=== PATIENT | female | born 1990 | race Caucasian/White ===

== ENCOUNTER → 2016-12-13 | Outpatient (REF) | payer OTHER | LOC: M SFHCWAGY 13:31 | PROVIDERS: ATTEND Nurse Practitioner Family | DX: O92.6 Galactorrhea (principal) ==

== ENCOUNTER → 2016-12-13 | Outpatient (CLI) | payer OTHER ==
[2016-12-13 12:51] LABS: MEAN CORPUSCULAR HEMOGLOBIN 31.1 pg (27.0-33.0); MEAN CORPUSCULAR HGB CONC 34.1 g/dl (32.0-36.5); MEAN CORPUSCULAR VOLUME 91.4 fl (80.0-96.0); RED CELL DISTRIBUTION WIDTH 12.2 % (11.5-14.5); WHITE BLOOD COUNT 5.2 K/mm3 (4.0-10.0)
[2016-12-13 13:06] LABS: CONTROL LINE HCG INT CTR LINE PRESENT
[2016-12-13 13:19] LABS: PROLACTIN 7.9 NG/ML
[2016-12-13 14:17] LABS: FREE T4 0.94 NG/DL (0.76-1.46)
== END ==
LOC: M LAB 12:20
PROVIDERS: ATTEND Nurse Practitioner Family
DX: R14.0 Abdominal distension (gaseous) (principal)

== ENCOUNTER → 2017-05-26 | Outpatient (CLI) | payer OTHER, SELFPAY ==
[2017-05-26 14:01] LABS: BASO % 0.5 % (0.0-1.0); EOS # 0.3 K/mm3 (0.0-0.50); EOS % 4.3 % (0.0-3.0); LYMPH # 2.2 K/mm3 (1.5-6.5); LYMPH % 31.1 % (24.0-44.0); MEAN CORPUSCULAR HEMOGLOBIN 30.8 pg (27.0-33.0); MEAN CORPUSCULAR HGB CONC 33.5 g/dl (32.0-36.5); MEAN CORPUSCULAR VOLUME 92.1 fl (80.0-96.0); MONO # 0.4 K/mm3 (0.0-0.8); NEUTROPHILS % 57.9 % (36.0-66.0); RED CELL DISTRIBUTION WIDTH 12.7 % (11.5-14.5); WHITE BLOOD COUNT 6.9 K/mm3 (4.0-10.0)
[2017-05-26 14:25] LABS: CONTROL LINE HCG INT CTR LINE PRESENT
[2017-05-26 14:39] LABS: ALBUMIN 3.5 GM/DL (3.2-5.2); ALKALINE PHOSPHATASE 81 U/L (45-117); ALT/SGPT 22 U/L (12-78); AST/SGOT 15 U/L (15-37); BILIRUBIN,DIRECT 0.2 MG/DL (0.0-0.2); BILIRUBIN,TOTAL 0.5 MG/DL (0.2-1.0); CHOLESTEROL LEVEL 180 MG/DL (< 200); TOTAL PROTEIN 6.2 GM/DL (6.4-8.2); TRIGLYCERIDES LEVEL 186 MG/DL (<150)
== END ==
LOC: M LAB 13:37
PROVIDERS: ATTEND Physician Assistant
DX: Z51.81 Encounter for therapeutic drug level monitoring (principal); Z79.899 Other long term (current) drug therapy; L70.0 Acne vulgaris

== ENCOUNTER → 2017-06-22 | Outpatient (CLI) | payer OTHER, SELFPAY ==
[2017-06-22 11:00] LABS: BASO % 0.5 % (0.0-1.0); EOS # 0.4 K/mm3 (0.0-0.50); EOS % 7.3 % (0.0-3.0); LYMPH # 1.9 K/mm3 (1.5-6.5); LYMPH % 34.4 % (24.0-44.0); MEAN CORPUSCULAR HEMOGLOBIN 31.8 pg (27.0-33.0); MEAN CORPUSCULAR VOLUME 90.9 fl (80.0-96.0); MONO # 0.3 K/mm3 (0.0-0.8); MONO % 5.7 % (0.0-5.0); NEUTROPHILS # 2.8 K/mm3 (1.8-7.7); NEUTROPHILS % 50.1 % (36.0-66.0); RED CELL DISTRIBUTION WIDTH 11.8 % (11.5-14.5); WHITE BLOOD COUNT 5.6 K/mm3 (4.0-10.0)
[2017-06-22 11:14] LABS: CONTROL LINE HCG INT CTR LINE PRESENT
[2017-06-22 11:23] LABS: ALBUMIN 3.7 GM/DL (3.2-5.2); ALBUMIN/GLOBULIN RATIO 1.28 (1.00-1.93); ALKALINE PHOSPHATASE 84 U/L (45-117); ALT/SGPT 32 U/L (12-78); AST/SGOT 20 U/L (15-37); BILIRUBIN,DIRECT 0.1 MG/DL (0.0-0.2); BILIRUBIN,TOTAL 0.4 MG/DL (0.2-1.0); CHOLESTEROL LEVEL 224 MG/DL (< 200); TOTAL PROTEIN 6.6 GM/DL (6.4-8.2); TRIGLYCERIDES LEVEL 278 MG/DL (<150)
== END ==
LOC: M LAB 10:31
PROVIDERS: ATTEND Physician Assistant
DX: Z51.81 Encounter for therapeutic drug level monitoring (principal); Z79.899 Other long term (current) drug therapy; L70.0 Acne vulgaris

== ENCOUNTER → 2017-07-23 | Outpatient (CLI) | payer OTHER ==
[2017-07-23 17:29] LABS: CONTROL LINE HCG INT CTR LINE PRESENT
[2017-07-23 17:38] LABS: BASO % 0.5 % (0.0-1.0); EOS # 0.4 10^3/uL (0.0-0.50); EOS % 5.5 % (0.0-3.0); IMMATURE GRANULOCYTE % 0.4 % (0-0); LYMPH # 2.7 10^3/uL (1.5-6.5); LYMPH % 33.3 % (24.0-44.0); MEAN CORPUSCULAR HEMOGLOBIN 30.8 pg (27.0-33.0); MEAN CORPUSCULAR HGB CONC 34.6 g/dl (32.0-36.5); MEAN CORPUSCULAR VOLUME 88.9 fl (80.0-96.0); MONO # 0.6 10^3/uL (0.0-0.8); MONO % 6.8 % (0.0-5.0); NEUTROPHILS # 4.3 10^3/uL (1.8-7.7); NEUTROPHILS % 53.5 % (36.0-66.0); PLATELET COUNT, AUTOMATED 293 10^3/uL (150-450); RED CELL DISTRIBUTION WIDTH 11.7 % (11.5-14.5)
[2017-07-23 17:48] LABS: ALBUMIN 3.8 GM/DL (3.2-5.2); ALBUMIN/GLOBULIN RATIO 1.31 (1.00-1.93); ALKALINE PHOSPHATASE 83 U/L (45-117); ALT/SGPT 21 U/L (12-78); AST/SGOT 17 U/L (15-37); BILIRUBIN,DIRECT 0.1 MG/DL (0.0-0.2); BILIRUBIN,TOTAL 0.4 MG/DL (0.2-1.0); CHOLESTEROL LEVEL 213 MG/DL (< 200); TOTAL PROTEIN 6.7 GM/DL (6.4-8.2); TRIGLYCERIDES LEVEL 162 MG/DL (<150)
== END ==
LOC: M LAB 16:47
PROVIDERS: ATTEND Physician Assistant
DX: Z79.899 Other long term (current) drug therapy (principal)

== ENCOUNTER 2017-09-01 09:28 | Emergency (ER) | payer OTHER ==
[~2017-09-01] VITALS: Ht 165.1 cm; Wt 76.0 kg
[2017-09-01 09:40] VITALS: BP 112/72
[2017-09-01] MEDS ORDERED: [UNRECOGNIZED DRUG - CODE] PO (09:43)
[2017-09-01] MEDS ORDERED: MUCI1TAB16 PO (10:35)
== END 2017-09-01 10:48 | disposition home or self-care (01) ==
LOC: M ED 09:28
DX: J01.90 Acute sinusitis, unspecified (principal); J30.9 Allergic rhinitis, unspecified; Z87.891 Personal history of nicotine dependence

== ENCOUNTER 2017-11-01 13:29 | Emergency (ER) | payer OTHER ==
[2017-11-01] MEDS: IBUPROFEN 800 MG TAB PO (14:20)
== END 2017-11-01 14:45 | disposition home or self-care (01) ==
LOC: M ED 13:29
DX: S16.1XXA Strain of muscle, fascia and tendon at neck level, initial encounter (principal); V43.62XA Car passenger injured in collision with other type car in traffic accident, initial encounter; Y92.410 Unspecified street and highway as the place of occurrence of the external cause; J30.9 Allergic rhinitis, unspecified; Z88.0 Allergy status to penicillin; Z79.899 Other long term (current) drug therapy
CPT/HCPCS: 70450

== ENCOUNTER → 2017-11-23 | Outpatient (CLI) | payer OTHER ==
[2017-11-23 13:01] LABS: BASO % 0.3 % (0.0-1.0); EOS # 0.5 10^3/uL (0.0-0.50); EOS % 8.1 % (0.0-3.0); HEMATOCRIT 38.8 % (36.0-47.0); HEMOGLOBIN 13.1 g/dl (12.0-16.0); IMMATURE GRANULOCYTE % 0.3 % (0-3.0); LYMPH # 1.8 10^3/uL (1.5-6.5); LYMPH % 30.1 % (24.0-44.0); MEAN CORPUSCULAR HEMOGLOBIN 29.6 pg (27.0-33.0); MEAN CORPUSCULAR HGB CONC 33.8 g/dl (32.0-36.5); MEAN CORPUSCULAR VOLUME 87.8 fl (80.0-96.0); MONO # 0.4 10^3/uL (0.0-0.8); MONO % 6.1 % (0.0-5.0); NEUTROPHILS # 3.3 10^3/uL (1.8-7.7); NEUTROPHILS % 55.1 % (36.0-66.0); PLATELET COUNT, AUTOMATED 260 10^3/uL (150-450); RED BLOOD COUNT 4.42 10^6/uL (4.00-5.40); RED CELL DISTRIBUTION WIDTH 11.9 % (11.5-14.5)
[2017-11-23 13:19] LABS: CONTROL LINE HCG INT CTR LINE PRESENT; HCG, SERUM QUALITATIVE NEGATIVE (NEGATIVE)
[2017-11-23 13:27] LABS: ALBUMIN/GLOBULIN RATIO 1.43 (1.00-1.93); ALKALINE PHOSPHATASE 86 U/L (45-117); ALT/SGPT 13 U/L (12-78); AST/SGOT 13 U/L (7-37); BILIRUBIN,DIRECT 0.2 MG/DL (0.0-0.2); BILIRUBIN,TOTAL 0.8 MG/DL (0.2-1.0); CHOLESTEROL LEVEL 197 MG/DL (< 200); TOTAL PROTEIN 6.8 GM/DL (6.4-8.2); TRIGLYCERIDES LEVEL 103 MG/DL (<150)
== END ==
LOC: M LAB 12:00
DX: L70.0 Acne vulgaris (principal)
CPT/HCPCS: 82465

== ENCOUNTER → 2017-12-07 | Outpatient (REF) | payer OTHER ==
[2017-12-07 14:17] LABS: CHLAMYDIA DNA AMPLIFICATION NEGATIVE (NEGATIVE); GC DNA AMPLIFICATION NEGATIVE (NEGATIVE)
== END ==
LOC: M SFHCWAGY 11:38
DX: Z11.3 Encounter for screening for infections with a predominantly sexual mode of transmission (principal)

== ENCOUNTER → 2017-12-07 | Outpatient (REF) | payer OTHER | LOC: M SFHCWAGY 08:31 | DX: Z12.4 Encounter for screening for malignant neoplasm of cervix (principal); Z11.3 Encounter for screening for infections with a predominantly sexual mode of transmission ==

== ENCOUNTER 2017-12-17 08:06 | Emergency (ER) | payer OTHER ==
[2017-12-17] MEDS: ALBUTEROL SULFATE 2.5 MG/0.5 ML INH NEB SOLN INH (08:46)
== END 2017-12-17 09:32 | disposition home or self-care (01) ==
LOC: M ED 08:06
DX: B34.9 Viral infection, unspecified (principal); J98.01 Acute bronchospasm; J45.909 Unspecified asthma, uncomplicated; Z88.0 Allergy status to penicillin; Z88.8 Allergy status to other drugs, medicaments and biological substances
CPT/HCPCS: 94640

== ENCOUNTER 2018-01-13 11:38 | Emergency (ER) | payer OTHER ==
[2018-01-13] MEDS: ALBUTEROL SULFATE 2.5 MG/0.5 ML INH NEB SOLN NEB (13:47)
[2018-01-13 15:12] LABS: INFLUENZA A AMPLIFICATION NEGATIVE (NEGATIVE); INFLUENZA B AMPLIFICATION NEGATIVE (NEGATIVE)
[2018-01-13] MEDS: predniSONE 20 MG TAB PO (15:42)
== END 2018-01-13 15:44 | disposition home or self-care (01) ==
LOC: M ED 11:38
DX: J06.9 Acute upper respiratory infection, unspecified (principal); J45.901 Unspecified asthma with (acute) exacerbation; Z88.0 Allergy status to penicillin; Z88.6 Allergy status to analgesic agent
CPT/HCPCS: 71046

== ENCOUNTER 2018-01-20 07:53 | Emergency (ER) | payer OTHER | END 2018-01-20 08:48 | disposition home or self-care (01) | LOC: M ED 07:53 | DX: K02.9 Dental caries, unspecified (principal); K04.7 Periapical abscess without sinus; Z87.891 Personal history of nicotine dependence; Z91.048 Other nonmedicinal substance allergy status; Z88.8 Allergy status to other drugs, medicaments and biological substances; Z88.0 Allergy status to penicillin | CPT/HCPCS: 99282 ==

== ENCOUNTER → 2018-04-08 | Outpatient (CLI) | payer OTHER | LOC: M WHC 12:49 | DX: N92.1 Excessive and frequent menstruation with irregular cycle (principal); R93.8 Abnormal findings on diagnostic imaging of other specified body structures | CPT/HCPCS: 76830 ==

== ENCOUNTER → 2018-04-24 | Outpatient (REF) | payer OTHER ==
[2018-04-24 18:41] LABS: HEMATOCRIT 37.9 % (36.0-47.0); HEMOGLOBIN 12.8 g/dl (12.0-15.5); MEAN CORPUSCULAR HEMOGLOBIN 30.4 pg (27.0-33.0); MEAN CORPUSCULAR HGB CONC 33.8 g/dl (32.0-36.5); PLATELET COUNT, AUTOMATED 271 10^3/uL (150-450); RED BLOOD COUNT 4.21 10^6/uL (4.00-5.40); RED CELL DISTRIBUTION WIDTH 11.9 % (11.5-14.5); WHITE BLOOD COUNT 6.1 10^3/uL (4.0-10.0)
[2018-04-24 19:05] LABS: THYROID STIMULATING HORMONE 0.448 uIU/ML (0.358-3.740)
== END ==
LOC: M SFHCWAGY 17:27
DX: N92.1 Excessive and frequent menstruation with irregular cycle (principal); R53.83 Other fatigue

== ENCOUNTER → 2018-08-19 | Outpatient (REF) | payer OTHER ==
[2018-08-19 18:04] LABS: HCG, SERUM QUANTITATIVE < 1.0 MIU/ML
== END ==
LOC: M LAB REF 16:46
DX: R45.4 Irritability and anger (principal)

== ENCOUNTER → 2018-10-24 | Outpatient (CLI) | payer OTHER ==
[~2018-10-24] MED LIST: ACET32TAB GT; BENZ200C70 PO; CLAR30CA PO; CLEO300C2 PO; MUCI1TAB16 PO; MUCI600T37 PO; PRED20TA PO; TYLE325T5 PO; VENTAER; VENTAER INH; [UNRECOGNIZED DRUG - CODE] PO
[2018-10-24 08:58] LABS: BASO # 0.1 10^3/uL (0.0-0.2); BASO % 0.9 % (0.0-1.0); EOS # 0.3 10^3/uL (0.0-0.50); EOS % 5.5 % (0.0-3.0); HEMATOCRIT 39.3 % (36.0-47.0); HEMOGLOBIN 13.5 g/dl (12.0-15.5); LYMPH # 1.8 10^3/uL (1.5-4.5); LYMPH % 31.3 % (24.0-44.0); MEAN CORPUSCULAR HEMOGLOBIN 30.9 pg (27.0-33.0); MEAN CORPUSCULAR HGB CONC 34.4 g/dl (32.0-36.5); MEAN CORPUSCULAR VOLUME 89.9 fl (80.0-96.0); MONO # 0.3 10^3/uL (0.0-0.8); MONO % 5.7 % (0.0-5.0); NEUTROPHILS # 3.2 10^3/uL (1.8-7.7); NEUTROPHILS % 56.1 % (36.0-66.0); PLATELET COUNT, AUTOMATED 349 10^3/uL (150-450); RED BLOOD COUNT 4.37 10^6/uL (4.00-5.40); WHITE BLOOD COUNT 5.6 10^3/uL (4.0-10.0)
[2018-10-24 09:19] LABS: ALBUMIN 3.8 GM/DL (3.2-5.2); ALT/SGPT 12 U/L (12-78); BILIRUBIN,DIRECT 0.2 MG/DL (0.0-0.2); BILIRUBIN,TOTAL 0.6 MG/DL (0.2-1.0); TOTAL PROTEIN 6.8 GM/DL (6.4-8.2)
[2018-10-24 13:20] LABS: H PYLORI QUALITATIVE IgG NEGATIVE (NEGATIVE)
[2018-10-26 08:06] LABS: IGASUB3 61.7 mg/dL (13.4-97.9); IgA SERUM (part of Subclasses) 142 mg/dL (87-352); TISSUE TRANSGLUTAMINASE IgA <2 U/mL (0-3)
== END ==
LOC: M LAB 08:23
PROVIDERS: ATTEND Internal Medicine Gastroenterology
DX: R11.0 Nausea (principal)

== ENCOUNTER 2018-12-04 09:50 | Emergency (ER) | payer OTHER ==
[~2018-12-04] VITALS: Ht 165.1 cm; Wt 72.7 kg
[2018-12-04 09:50] VITALS: BP 120/79
[2018-12-04] MEDS ORDERED: NORT0.5T2 (10:00)
[2018-12-04] MEDS ORDERED: CLAR10CA3 PO (10:00)
[2018-12-04] MEDS ORDERED: ALBU83IN NEB (10:00)
[2018-12-04] MEDS ORDERED: MUCI600T37 PO (10:30)
[2018-12-04] MEDS ORDERED: SUDA30TA8 PO (10:30)
[2018-12-04] MEDS ORDERED: PRED20TA PO (10:30)
== END 2018-12-04 10:36 | disposition home or self-care (01) ==
LOC: M ED 09:50
DX: J45.998 Other asthma (principal); N80.9 Endometriosis, unspecified; Z79.899 Other long term (current) drug therapy; Z88.0 Allergy status to penicillin; Z88.8 Allergy status to other drugs, medicaments and biological substances

== ENCOUNTER → 2018-12-06 | Outpatient (REF) | payer OTHER ==
[~2018-12-06] MED LIST changes: +ALBU83IN NEB; +CLAR10CA3 PO; +NORT0.5T2; +SUDA30TA8 PO
[2018-12-06 17:44] LABS: CHLAMYDIA DNA AMPLIFICATION NEGATIVE (NEGATIVE); GC DNA AMPLIFICATION NEGATIVE (NEGATIVE)
== END ==
LOC: M SFHCWAGY 13:26
PROVIDERS: ATTEND Nurse Practitioner Family
DX: Z12.4 Encounter for screening for malignant neoplasm of cervix (principal); Z11.3 Encounter for screening for infections with a predominantly sexual mode of transmission; Z11.51 Encounter for screening for human papillomavirus (HPV)

== ENCOUNTER → 2019-02-06 | Outpatient (CLI) | payer OTHER ==
[2019-02-06 10:12] LABS: BASO # 0.1 10^3/uL (0.0-0.2); BASO % 0.8 % (0.0-1.0); EOS # 0.2 10^3/uL (0.0-0.50); EOS % 3.5 % (0.0-3.0); HEMATOCRIT 38.6 % (36.0-47.0); HEMOGLOBIN 12.9 g/dl (12.0-15.5); LYMPH # 1.8 10^3/uL (1.5-4.5); LYMPH % 29.8 % (24.0-44.0); MEAN CORPUSCULAR HEMOGLOBIN 29.9 pg (27.0-33.0); MEAN CORPUSCULAR HGB CONC 33.4 g/dl (32.0-36.5); MEAN CORPUSCULAR VOLUME 89.6 fl (80.0-96.0); MONO # 0.4 10^3/uL (0.0-0.8); MONO % 7.2 % (0.0-5.0); NEUTROPHILS # 3.5 10^3/uL (1.8-7.7); NEUTROPHILS % 58.2 % (36.0-66.0); PLATELET COUNT, AUTOMATED 373 10^3/uL (150-450); RED BLOOD COUNT 4.31 10^6/uL (4.00-5.40)
[2019-02-06 10:28] LABS: HEMOGLOBIN A1c 5.4 %
[2019-02-06 10:52] LABS: ALBUMIN 3.5 GM/DL (3.2-5.2); ALT/SGPT 11 U/L (12-78); BILIRUBIN,TOTAL 0.5 MG/DL (0.2-1.0); BLOOD UREA NITROGEN 8 MG/DL (7-18); CALCIUM LEVEL 8.7 MG/DL (8.5-10.1); CARBON DIOXIDE LEVEL 26 MEQ/L (21-32); CHLORIDE LEVEL 110 MEQ/L (98-107); CHOLESTEROL LEVEL 170 MG/DL (<200); CHOLESTEROL RISK RATIO 3.541 (<5); CREATININE FOR GFR 0.85 MG/DL (0.55-1.30); FREE T4 1.14 NG/DL (0.76-1.46); GLOMERULAR FILTRATION RATE > 60.0 (>60); GLUCOSE, FASTING 91 MG/DL (70-100); HDL CHOLESTEROL 48 MG/DL (>40); LDL CHOLESTEROL 105 MG/DL (<100); NON-HDL-C 122 MG/DL; POTASSIUM SERUM 4.6 MEQ/L (3.5-5.1); SODIUM LEVEL 142 MEQ/L (136-145); THYROID STIMULATING HORMONE 0.691 uIU/ML (0.358-3.740); TOTAL PROTEIN 6.6 GM/DL (6.4-8.2); TRIGLYCERIDES LEVEL 87 MG/DL (<150)
[2019-02-06 11:16] LABS: TOTAL 25(OH) VITAMIN D 30.5 NG/ML (30.0-100.0)
== END ==
LOC: M LAB 09:02
PROVIDERS: ATTEND Nurse Practitioner Adult Health
DX: Z13.9 Encounter for screening, unspecified (principal)

== ENCOUNTER → 2019-04-01 | Outpatient (REF) | payer OTHER, MEDICAID | LOC: M LAB REF 17:07 | PROVIDERS: ATTEND Nurse Practitioner Adult Health | DX: Z13.9 Encounter for screening, unspecified (principal) ==

== ENCOUNTER → 2019-07-01 | Outpatient (REF) | payer OTHER, MEDICAID ==
[~2019-07-01] MED LIST changes: -ACET32TAB GT; +MAPA325T4 GT
[2019-07-01 16:57] LABS: CHLAMYDIA DNA AMPLIFICATION NEGATIVE (NEGATIVE); GC DNA AMPLIFICATION NEGATIVE (NEGATIVE)
[2019-07-02 10:50] LABS: HIV 1&2 SCREEN CENTAUR NEGATIVE (NEGATIVE)
== END ==
LOC: M LAB REF 14:12
PROVIDERS: ATTEND Nurse Practitioner Adult Health
DX: Z11.3 Encounter for screening for infections with a predominantly sexual mode of transmission (principal)

== ENCOUNTER → 2019-08-11 | Outpatient (REF) | payer OTHER, MEDICAID ==
[2019-08-11 18:52] LABS: CHLAMYDIA DNA AMPLIFICATION NEGATIVE (NEGATIVE); GC DNA AMPLIFICATION NEGATIVE (NEGATIVE)
[2019-08-11 19:08] LABS: HIV 1&2 SCREEN CENTAUR NEGATIVE (NEGATIVE)
[2019-08-14 00:07] LABS: HSV IgM TYPES 1&2 <0.91 Ratio (0.00-0.90)
== END ==
LOC: M LAB REF 16:09
PROVIDERS: ATTEND Nurse Practitioner Adult Health
DX: Z11.3 Encounter for screening for infections with a predominantly sexual mode of transmission (principal)

== ENCOUNTER 2019-09-05 09:06 | Emergency (ER) | payer MEDICAID, OTHER ==
[~2019-09-05] VITALS: Ht 165.1 cm; Wt 70.7 kg
[2019-09-05] MEDS ORDERED: BENA25CA4 PO (10:08)
[2019-09-05 11:12] LABS: BASO % 0.3 % (0.0-1.0); EOS # 0.1 10^3/uL (0.0-0.5); EOS % 1.1 % (0.0-3.0); HEMATOCRIT 39.4 % (36.0-47.0); HEMOGLOBIN 13.1 g/dl (12.0-15.5); LYMPH # 1.7 10^3/uL (1.5-5.0); LYMPH % 15.6 % (24.0-44.0); MEAN CORPUSCULAR HGB CONC 33.2 g/dl (32.0-36.5); MEAN CORPUSCULAR VOLUME 93.4 fl (80.0-96.0); MONO # 0.6 10^3/uL (0.0-0.8); MONO % 5.2 % (0.0-5.0); NEUTROPHILS # 8.3 10^3/uL (1.5-8.5); NEUTROPHILS % 77.3 % (36.0-66.0); PLATELET COUNT, AUTOMATED 321 10^3/uL (150-450); RED BLOOD COUNT 4.22 10^6/uL (4.00-5.40); WHITE BLOOD COUNT 10.7 10^3/uL (4.0-10.0)
[2019-09-05 11:33] LABS: MONO SCRN NEGATIVE (NEGATIVE)
[2019-09-05 11:37] LABS: INFLUENZA A AMPLIFICATION NEGATIVE (NEGATIVE); INFLUENZA B AMPLIFICATION NEGATIVE (NEGATIVE)
[2019-09-05] MEDS ORDERED: CLIN300C5 PO (14:30)
[2019-09-05 14:38] VITALS: BP 112/63
== END 2019-09-05 14:42 | disposition home or self-care (01) ==
LOC: M ED 09:06
DX: K08.89 Other specified disorders of teeth and supporting structures (principal); R59.0 Localized enlarged lymph nodes; R07.0 Pain in throat; Z88.0 Allergy status to penicillin; Z88.8 Allergy status to other drugs, medicaments and biological substances

== ENCOUNTER → 2019-12-03 | Outpatient (REF) | payer OTHER ==
[~2019-12-03] MED LIST changes: +BENA25CA4 PO; +CLIN300C5 PO
[2019-12-03 18:30] LABS: BASO # 0.1 10^3/uL (0.0-0.2); BASO % 0.7 % (0.0-1.0); EOS # 0.2 10^3/uL (0.0-0.5); EOS % 2.8 % (0.0-3.0); HEMATOCRIT 38.2 % (36.0-47.0); HEMOGLOBIN 12.5 g/dl (12.0-15.5); LYMPH # 2.2 10^3/uL (1.5-5.0); LYMPH % 31.8 % (24.0-44.0); MEAN CORPUSCULAR HEMOGLOBIN 30.1 pg (27.0-33.0); MEAN CORPUSCULAR HGB CONC 32.7 g/dl (32.0-36.5); MONO # 0.5 10^3/uL (0.0-0.8); MONO % 7.6 % (0.0-5.0); NEUTROPHILS # 3.9 10^3/uL (1.5-8.5); NEUTROPHILS % 56.7 % (36.0-66.0); PLATELET COUNT, AUTOMATED 283 10^3/uL (150-450); RED BLOOD COUNT 4.15 10^6/uL (4.00-5.40); WHITE BLOOD COUNT 6.9 10^3/uL (4.0-10.0)
[2019-12-03 18:57] LABS: ALBUMIN 3.7 GM/DL (3.2-5.2); ALT/SGPT 13 U/L (12-78); BILIRUBIN,TOTAL 0.4 MG/DL (0.2-1.0); BLOOD UREA NITROGEN 8 MG/DL (7-18); CALCIUM LEVEL 8.8 MG/DL (8.5-10.1); CARBON DIOXIDE LEVEL 28 MEQ/L (21-32); CHLORIDE LEVEL 110 MEQ/L (98-107); CREATININE FOR GFR 0.92 MG/DL (0.55-1.30); GLOMERULAR FILTRATION RATE > 60.0 (>60); GLUCOSE, FASTING 82 MG/DL (70-100); POTASSIUM SERUM 4.2 MEQ/L (3.5-5.1); SODIUM LEVEL 140 MEQ/L (136-145); TOTAL PROTEIN 6.3 GM/DL (6.4-8.2)
== END ==
LOC: M LAB REF 16:44
PROVIDERS: ATTEND Nurse Practitioner Adult Health
DX: Z13.9 Encounter for screening, unspecified (principal)

== ENCOUNTER → 2020-03-04 | Outpatient (CLI) | payer OTHER ==
[~2020-03-04] MED LIST changes: +ACET325T43 GT; -MAPA325T4 GT
--- NOTE | 2020-03-05 01:34 | REP ---
Clinical: Abdominal bloating. Technique: Single supine view of the abdomen and pelvis. Findings: Bowel gas pattern is nonspecific. No organomegaly. Phleboliths noted in the pelvis. Skeletal structures are intact. No foreign body or significant calcifications appreciated. Impression: Nonspecific abdominal radiograph. Electronically Signed by Baldomero Magallon MD 03/05/2020 01:25 A
== END ==
LOC: M LAB 11:56
PROVIDERS: ATTEND Nurse Practitioner Adult Health
DX: Z13.9 Encounter for screening, unspecified (principal)

== ENCOUNTER → 2020-03-29 | Outpatient (CLI) | payer OTHER ==
[~2020-03-29] MED LIST changes: +GLYC1TAB18 PO; +IBUP-1022 PO; +OXYC1TAB23 PO
== END ==
LOC: M LABSMTC 10:30
PROVIDERS: ATTEND Anesthesiology
DX: Z03.818 Encounter for observation for suspected exposure to other biological agents ruled out (principal); Z11.59 Encounter for screening for other viral diseases
CPT/HCPCS: 87486; 87581; 87633; 87798; C9803

== ENCOUNTER 2020-03-31 05:59 | Day surgery (SDC) | payer OTHER ==
[~2020-03-31] VITALS: Ht 165.1 cm; Wt 71.2 kg
[~2020-03-31 05:59] MED LIST changes: -IBUP-1022 PO; -OXYC1TAB23 PO
[2020-03-31 06:42] LABS: HEMATOCRIT 35.9 % (36.0-47.0); HEMOGLOBIN 12.4 g/dl (12.0-15.5); MEAN CORPUSCULAR HEMOGLOBIN 30.8 pg (27.0-33.0); MEAN CORPUSCULAR HGB CONC 34.5 g/dl (32.0-36.5); MEAN CORPUSCULAR VOLUME 89.3 fl (80.0-96.0); PLATELET COUNT, AUTOMATED 340 10^3/uL (150-450); RED BLOOD COUNT 4.02 10^6/uL (4.00-5.40); WHITE BLOOD COUNT 5.3 10^3/uL (4.0-10.0)
[2020-03-31] MEDS ORDERED: LR 1,000 ML IV ONE (07:00)
[2020-03-31] MEDS ORDERED: dexameTHASONE 4 MG/ML 1ML VIAL (J1100 PER 1MG) As Ordered ONE (07:11)
[2020-03-31] MEDS ORDERED: LIDOCAINE 2% 100MG/5ML SDV (FOR ANES.) As Ordered ONE (07:11)
[2020-03-31] MEDS ORDERED: fentaNYL 250 MCG/5 ML INJECTION (J3010) As Ordered ONE (07:11)
[2020-03-31] MEDS ORDERED: KETOROLAC 60MG 2ML VIAL As Ordered ONE (07:11)
[2020-03-31] MEDS ORDERED: ONDANSETRON 4MG/2ML VIAL As Ordered ONE (07:11)
[2020-03-31] MEDS ORDERED: propofoL 200 MG/20 ML VIAL As Ordered ONE (07:11)
[2020-03-31] MEDS ORDERED: MIDAZOLAM INJ 2MG/2ML VIAL (J2250 PER 1MG) As Ordered ONE (07:11)
[2020-03-31] MEDS ORDERED: BUPIVACAINE HCL 0.25% 30ML VIAL As Ordered ONE (07:12)
[2020-03-31] MEDS ORDERED: LIDOCAINE W/EPINEPHRINE 1% 20ML VIAL As Ordered ONE (07:12)
[2020-03-31] MEDS ORDERED: IODINE STRONG SOLN 15 ML BTL As Ordered ONE (07:12)
[2020-03-31] MEDS ORDERED: ePHEDrine SULFATE 25 MG/5 ML(5MG/ML) SYRINGE As Ordered ONE (07:40)
[2020-03-31] MEDS ORDERED: PHENYLephrine HCL 500 MCG/5 ML (100MCG/ML) SYRINGE (J2370) As Ordered ONE (07:56)
[2020-03-31] MEDS ORDERED: LIDOCAINE 1% MDV 20ML VIAL As Ordered ONE (08:01)
[2020-03-31] MEDS ORDERED: OXYC1TAB23 PO (08:44)
[2020-03-31] MEDS ORDERED: ONDANSETRON 4MG/2ML VIAL IV PRN (08:45)
[2020-03-31] MEDS ORDERED: oxyCODONE 5MG TAB PO PRN (08:45)
[2020-03-31] MEDS ORDERED: fentaNYL 100 MCG/2 ML INJECTION (J3010) IV PRN (08:45)
[2020-03-31] MEDS ORDERED: PERCOCET 5MG/325MG TAB PO PRN (08:45)
[2020-03-31] MEDS ORDERED: LR 1,000 ML IV SCH ×2 (08:45)
[2020-03-31] MEDS ORDERED: IBUP-1022 PO (08:46)
[2020-03-31 08:56] VITALS: BP 130/77
--- NOTE | 2020-04-01 12:34 | RO ---
DATE OF OPERATION: 03/31/2020 PREOPERATIVE DIAGNOSIS: Cervical inflammation with bleeding, left labial hypertrophy. POSTOPERATIVE DIAGNOSIS: Cervical inflammation with bleeding, left labial hypertrophy. PROCEDURE: Loop electroexcision procedure in the cervix, left labioplasty. SURGEON: Lenin White MD INFANT NANNY: ANESTHESIA: Laryngeal mask airway (LMA). ESTIMATED BLOOD LOSS: 10 mL. URINE OUTPUT: 20 mL, FINDINGS: Extensive inflammation of the cervix, the anterior lip due to ectropion. Spontaneous bleeding note from the cervix. Hypertrophy of the left labia minora. Normal appearing right labia minora. OPERATIVE SUMMARY: The patient was taken to the operating room where LMA anesthesia was induced. She was prepped and draped in the sterile fashion in the dorsal lithotomy position. The bladder was emptied with a catheter. A speculum valves was placed in the vagina. The anterior lip of the cervix was grasped with a tenaculum. The cervix was injected circumferentially with 20 mL of dilution containing 1% lidocaine and epinephrine. An 8 x 15 mm loop was utilized to a cutting size of 90 downs. A single pass was made excising the inflamed area of the cervix. The base of the cervix was coagulated with ball electrocoagulation. Monsel solution was applied. Good hemostasis was noted. The speculum was removed. The left labia minor was identified and grasped with Allis clamps. A marking pen was used to kaleigh areas of excision. The area was injected with 1% lidocaine for a total of 11 mL. Metzenbaum scissors were used to excise along the previously marked area in an elliptical type pattern.Bleeding vessels were coagulated. A subcuticular suture of 4-0 vicryl was used to close the skin. Sponge, needle, instrument counts were correct. MTDD
== END 2020-03-31 09:30 | disposition home or self-care (01) ==
LOC: M SDC 05:59
PROVIDERS: ATTEND Specialist
DX: N88.8 Other specified noninflammatory disorders of cervix uteri (principal); N84.3 Polyp of vulva; N90.69 Other specified hypertrophy of vulva; Z79.899 Other long term (current) drug therapy; Z88.0 Allergy status to penicillin; Z88.8 Allergy status to other drugs, medicaments and biological substances
CPT/HCPCS: 36415; 56620; 57522; 81025; 85027; 88304; J1100; J1885; J2250; J2370; J2405; J3010

== ENCOUNTER 2020-08-12 17:00 | Emergency (ER) | payer OTHER ==
[~2020-08-12] VITALS: Ht 165.1 cm; Wt 75.9 kg
[~2020-08-12 17:00] MED LIST changes: -AZIT500T5 PO
[2020-08-12 19:52] LABS: BASO % 0.6 % (0.0-1.0); EOS # 0.2 10^3/uL (0.0-0.5); EOS % 3.3 % (0.0-3.0); HEMATOCRIT 42.4 % (36.0-47.0); HEMOGLOBIN 13.9 g/dl (12.0-15.5); LYMPH # 2.5 10^3/uL (1.5-5.0); MEAN CORPUSCULAR HEMOGLOBIN 29.6 pg (27.0-33.0); MEAN CORPUSCULAR HGB CONC 32.8 g/dl (32.0-36.5); MEAN CORPUSCULAR VOLUME 90.4 fl (80.0-96.0); MONO # 0.5 10^3/uL (0.0-0.8); MONO % 6.8 % (0.0-5.0); NEUTROPHILS # 3.7 10^3/uL (1.5-8.5); PLATELET COUNT, AUTOMATED 303 10^3/uL (150-450); RED BLOOD COUNT 4.69 10^6/uL (4.00-5.40); WHITE BLOOD COUNT 6.9 10^3/uL (4.0-10.0)
[2020-08-12 20:17] LABS: CK-MB VALUE MASS < 1.0 NG/ML (<3.6); CPK CREATINE PHOSPHOKINASE 87 U/L (26-192); FREE T4 0.98 NG/DL (0.76-1.46); MB/CK RELATIVE INDEX 1.15 (< OR =4); THYROID STIMULATING HORMONE 0.537 uIU/ML (0.358-3.740); TROPONIN I < 0.02 NG/ML (< 0.10)
[2020-08-12] MEDS ORDERED: ISOVUE-370 76% 100ML VIAL As Ordered ONE (20:20)
--- NOTE | 2020-08-12 20:47 | REPVR ---
PROCEDURE INFORMATION: Exam: CT Neck With Contrast Exam date and time: 08/12/2020 8:31 PM Age: 30 years old Clinical indication: Mass, lump, or swelling in neck; Additional info: L anterolateral neck swelling, R/O abscess TECHNIQUE: Imaging protocol: Computed tomography images of the neck with intravenous contrast. Radiation optimization: All CT scans at this facility use at least one of these dose optimization techniques: automated exposure control; mA and/or kV adjustment per patient size (includes targeted exams where dose is matched to clinical indication); or iterative reconstruction. Contrast material: ISOVUE 370; Contrast volume: 75 ml; Contrast route: INTRAVENOUS (IV); COMPARISON: CT Spine,cervical w/o contrast 11/01/2017 2:08 PM FINDINGS: Nasopharynx: Unremarkable. Oropharynx: Unremarkable. No significant tonsillar enlargement. Hypopharynx: Unremarkable. Larynx: Unremarkable. Normal epiglottis. Retropharyngeal space: Unremarkable. Submandibular/Parotid glands: Normal. Glands are normal in size. Thyroid: Complex partially cystic thyroid nodule in the left lobe of the thyroid gland measures 1.7 x 1.6 x 1.8 cm. 3 x 3 x 3 mm hypoattenuating nodule in the right lobe. Correlation with ultrasound suggested. Lymph nodes: Unremarkable. No lymphadenopathy. Trachea: Visualized trachea is unremarkable. Lungs: Unremarkable as visualized. Bones/joints: Unremarkable. No acute fracture. Soft tissues: Unremarkable. No significant soft tissue swelling. IMPRESSION: Complex partially cystic thyroid nodule in the left lobe of the thyroid gland measures 1.7 x 1.6 x 1.8 cm. Nodule was present on the prior cervical spine study of 2017 although not fully evaluated at that time. 3 x 3 x 3 mm hypoattenuating nodule in the right lobe. Correlation with thyroid ultrasound suggested. COMMENTS: Consistent with the [employer]'s Incidental Findings Committee white paper (J Am Nicholas Radiol 2015): In patients under 35 years old with an incidental thyroid nodule equal to or greater than [address], MRI or extrathyroidal US, further evaluation with dedicated thyroid US is recommended for patients with normal life expectancy and without comorbidities. For smaller nodules without suspicious features, no further evaluation or follow up is recommended. Electronically signed by: Jeramy Scott On 08/12/2020 20:47:16 PM
[2020-08-12] MEDS ORDERED: AZIT500T5 PO (20:57)
[2020-08-12 21:07] VITALS: BP 143/90
[2020-08-12] MEDS ORDERED: AZITHROMYCIN 250MG TABLET PO ONE (21:15)
--- NOTE | 2020-08-13 07:28 | ECGEPIP ---
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
--- NOTE | 2020-08-13 07:32 | ED PDOC ---
Post-Departure Follow-Up marco johnston faxed formal report of ct neck for fu Heidi James MD Aug 13, 2020 07:32
== END 2020-08-12 21:16 | disposition home or self-care (01) ==
LOC: M ED 17:00
DX: J02.0 Streptococcal pharyngitis (principal); E04.1 Nontoxic single thyroid nodule; J45.901 Unspecified asthma with (acute) exacerbation; R22.1 Localized swelling, mass and lump, neck; N80.9 Endometriosis, unspecified; Z79.51 Long term (current) use of inhaled steroids; Z79.899 Other long term (current) drug therapy
CPT/HCPCS: 36415; 70491; 80047; 82550; 82553; 84439; 84443; 84702; 85025; 85379; 87880; 93005; 99284; Q9967

== ENCOUNTER → 2020-08-12 | Outpatient (REF) | payer OTHER ==
[~2020-08-12] MED LIST changes: +AZIT500T5 PO; +IBUP-1022 PO; +OXYC1TAB23 PO
== END ==
LOC: M LAB REF 11:34
PROVIDERS: ATTEND Family Medicine Addiction Medicine
DX: J02.9 Acute pharyngitis, unspecified (principal)

== ENCOUNTER → 2020-08-18 | Outpatient (REF) | payer OTHER ==
[~2020-08-18] MED LIST changes: +AZIT500T5 PO
[2020-08-18 17:42] LABS: BASO % 0.7 % (0.0-1.0); EOS # 0.1 10^3/uL (0.0-0.5); EOS % 2.9 % (0.0-3.0); HEMATOCRIT 37.7 % (36.0-47.0); HEMOGLOBIN 12.8 g/dl (12.0-15.5); LYMPH # 1.6 10^3/uL (1.5-5.0); LYMPH % 35.7 % (24.0-44.0); MEAN CORPUSCULAR HEMOGLOBIN 30.8 pg (27.0-33.0); MEAN CORPUSCULAR VOLUME 90.8 fl (80.0-96.0); MONO # 0.4 10^3/uL (0.0-0.8); MONO % 9.7 % (0.0-5.0); NEUTROPHILS # 2.3 10^3/uL (1.5-8.5); NEUTROPHILS % 50.8 % (36.0-66.0); PLATELET COUNT, AUTOMATED 270 10^3/uL (150-450); RED BLOOD COUNT 4.15 10^6/uL (4.00-5.40); WHITE BLOOD COUNT 4.5 10^3/uL (4.0-10.0)
[2020-08-18 21:04] LABS: ALBUMIN 3.8 GM/DL (3.2-5.2); ALT/SGPT 19 U/L (12-78); BILIRUBIN,TOTAL 0.5 MG/DL (0.2-1.0); BLOOD UREA NITROGEN 8 MG/DL (7-18); CALCIUM LEVEL 9.4 MG/DL (8.5-10.1); CARBON DIOXIDE LEVEL 24 MEQ/L (21-32); CHLORIDE LEVEL 106 MEQ/L (98-107); CREATININE FOR GFR 0.89 MG/DL (0.55-1.30); GLOMERULAR FILTRATION RATE > 60.0 (>60); GLUCOSE, FASTING 82 MG/DL (70-100); POTASSIUM SERUM 4.1 MEQ/L (3.5-5.1); SODIUM LEVEL 137 MEQ/L (136-145); TOTAL PROTEIN 6.7 GM/DL (6.4-8.2)
== END ==
LOC: M LAB REF 16:47
PROVIDERS: ATTEND Nurse Practitioner Adult Health
DX: Z01.89 Encounter for other specified special examinations (principal)

== ENCOUNTER 2020-10-09 14:18 | Emergency (ER) | payer OTHER ==
[~2020-10-09] VITALS: Ht 165.1 cm; Wt 72.7 kg
[~2020-10-09 14:18] MED LIST changes: -CLIN300C5 PO; +CLIN300C6 PO
[2020-10-09 14:19] VITALS: BP 137/70
[2020-10-09] MEDS ORDERED: ONE-1TAB PO (14:26)
[2020-10-09 15:39] LABS: BASO % 0.5 % (0.0-1.0); EOS # 0.3 10^3/uL (0.0-0.5); EOS % 5.1 % (0.0-3.0); HEMATOCRIT 38.3 % (36.0-47.0); HEMOGLOBIN 12.3 g/dl (12.0-15.5); LYMPH # 1.9 10^3/uL (1.5-5.0); LYMPH % 29.9 % (24.0-44.0); MEAN CORPUSCULAR HEMOGLOBIN 30.3 pg (27.0-33.0); MEAN CORPUSCULAR HGB CONC 32.1 g/dl (32.0-36.5); MEAN CORPUSCULAR VOLUME 94.3 fl (80.0-96.0); MONO # 0.4 10^3/uL (0.0-0.8); MONO % 6.8 % (0.0-5.0); NEUTROPHILS # 3.6 10^3/uL (1.5-8.5); NEUTROPHILS % 57.4 % (36.0-66.0); PLATELET COUNT, AUTOMATED 325 10^3/uL (150-450); RED BLOOD COUNT 4.06 10^6/uL (4.00-5.40); WHITE BLOOD COUNT 6.3 10^3/uL (4.0-10.0)
[2020-10-09 15:49] LABS: INR 0.94; PARTIAL THROMBOPLASTIN TIME 28.7 SECONDS (24.2-38.5); PROTHROMBIN TIME 12.8 SECONDS (12.5-14.3)
[2020-10-09 16:13] LABS: ALBUMIN 3.8 GM/DL (3.2-5.2); ALT/SGPT 28 U/L (12-78); BILIRUBIN,DIRECT 0.1 MG/DL (0.0-0.2); BILIRUBIN,TOTAL 0.3 MG/DL (0.2-1.0); BLOOD UREA NITROGEN 12 MG/DL (7-18); CARBON DIOXIDE LEVEL 25 MEQ/L (21-32); CHLORIDE LEVEL 110 MEQ/L (98-107); CREATININE FOR GFR 0.78 MG/DL (0.55-1.30); GLOMERULAR FILTRATION RATE > 60.0 (>60); GLUCOSE, FASTING 102 MG/DL (70-100); LIPASE 58 U/L (73-393); POTASSIUM SERUM 4.4 MEQ/L (3.5-5.1); SODIUM LEVEL 140 MEQ/L (136-145); TOTAL PROTEIN 6.9 GM/DL (6.4-8.2)
[2020-10-09 16:14] LABS: HCG, SERUM QUALITATIVE NEGATIVE (NEGATIVE)
--- NOTE | 2020-10-09 16:21 | REP ---
INDICATION: r/o abscess vs ascites COMPARISON: None. TECHNIQUE: Real time aranda scale ultrasound examination using linear high-frequency transducer. FINDINGS: Directed ultrasound examination at the surgical site demonstrates normal subcutaneous tissues without significant edema or discrete fluid collection/abscess. IMPRESSION: Normal limited ultrasound examination. <Electronically signed by Baldomero Magallon > 10/09/20 [id number]
[2020-10-09] MEDS ORDERED: ISOVUE-370 76% 100ML VIAL As Ordered ONE (16:37)
== END 2020-10-09 17:09 | disposition left against medical advice (07) ==
LOC: M ED 14:18
DX: R10.9 Unspecified abdominal pain (principal); N80.9 Endometriosis, unspecified; Z88.0 Allergy status to penicillin; Z88.8 Allergy status to other drugs, medicaments and biological substances; J30.2 Other seasonal allergic rhinitis

== ENCOUNTER → 2020-10-20 | Outpatient (CLI) | payer OTHER ==
[~2020-10-20] MED LIST changes: +GASTROGRAFIN SOLUTION 30ML (Q9963) As Ordered ONE; +ISOVUE-370 76% 100ML VIAL As Ordered ONE; +ONE-1TAB PO
--- NOTE | 2020-10-20 16:51 | REP ---
INDICATION: SEROMA COMPARISON: None. TECHNIQUE: CT Scan of the abdomen and pelvis was performed with intravenous administration of 100 cc of Isovue 370, and oral contrast. FINDINGS: Lung bases: Unremarkable. Liver: In the anteromedial right lobe of the liver a subtle 2 cm enhancing nodule is seen with the epicenter seen on image number 20 of 152. A similar nodule is seen at the same level more posteriorly. These most likely benign, and represent transient attenuation and enhancement changes or possibly areas of spared parenchyma with diffuse fatty infiltration of the remainder of the liver. They could represent hemangiomas. Gallbladder: Unremarkable. Spleen: Normal. Adrenals: Normal. Pancreas: Normal. Kidneys: Normal. Small and large bowel: Unremarkable. Free fluid: None. Abdominal aorta: No aneurysm or dissection. Adenopathy: None. Appendix: Not inflamed. Osseous structures: Unremarkable. Pelvis: No mass. There is mild diffuse superficial soft tissue edema. No fluid collection is seen. IMPRESSION: In the anteromedial right lobe of the liver a subtle 2 cm enhancing nodule is seen with the epicenter seen on image number 20 of 152. A similar nodule is seen at the same level more posteriorly. These most likely benign, and represent transient attenuation and enhancement changes or possibly areas of spared parenchyma with diffuse fatty infiltration of the remainder of the liver. They could represent hemangiomas. There is mild diffuse superficial soft tissue edema. No fluid collection is seen. <Electronically signed by Christopher Zhu > 10/20/20 [id number]
== END ==
LOC: M RAD 14:24
PROVIDERS: ATTEND Plastic Surgery Surgery of the Hand
DX: L76.34 Postprocedural seroma of skin and subcutaneous tissue following other procedure (principal)
CPT/HCPCS: 74177; Q9963; Q9967

== ENCOUNTER → 2020-12-06 | Outpatient (CLI) | payer OTHER ==
[~2020-12-06] MED LIST changes: -GASTROGRAFIN SOLUTION 30ML (Q9963) As Ordered ONE; -ISOVUE-370 76% 100ML VIAL As Ordered ONE
[2020-12-06 15:23] LABS: HEPATITIS C VIRUS ABY INDEX < 0.0 INDEX (<0.8); HIV 1&2 SCREEN CENTAUR NEGATIVE (NEGATIVE)
[2020-12-06 15:54] LABS: CHLAMYDIA DNA AMPLIFICATION NEGATIVE (NEGATIVE); GC DNA AMPLIFICATION NEGATIVE (NEGATIVE)
== END ==
LOC: M PLALAB 09:27
PROVIDERS: ATTEND Nurse Practitioner Family
DX: Z11.3 Encounter for screening for infections with a predominantly sexual mode of transmission (principal)

== ENCOUNTER → 2020-12-17 | Outpatient (REF) | payer OTHER ==
[2020-12-17 17:46] LABS: FREE T4 1.09 NG/DL (0.76-1.46); THYROID STIMULATING HORMONE 0.683 uIU/ML (0.358-3.740)
== END ==
LOC: M LAB REF 16:09
PROVIDERS: ATTEND Nurse Practitioner Adult Health
DX: E04.9 Nontoxic goiter, unspecified (principal)

== ENCOUNTER → 2021-04-04 | Outpatient (CLI) | payer OTHER ==
--- NOTE | 2021-04-04 14:08 | REP ---
INDICATION: R10.2 PELVIC PAIN. COMPARISON: Multiple the latest 04/08/2018 which was within normal limits TECHNIQUE: Transvesical and transvaginal imaging FINDINGS: The uterus measures 9.2 x 8 x 8 by 5.9 cm the parenchymal echo pattern is somewhat heterogenous but there are no discrete measurable masses. The endometrial echo complex is smooth and unremarkable appearing measuring 4 mm in its greatest thickness. There is no free fluid in the cul-de-sac. The right ovary measures 3.8 x 1.9 x 2.4 cm and is within normal limits with an RI 0.56 Left ovary measures 3.1 x 1.8 x 2.2 cm and is within normal limits with an RI 0.51. Urinary bladder measures 15 x 10 x 13 cm. IMPRESSION: No significant change from the prior exam. No acute abnormality. Possible early uterine myomatous changes. <Electronically signed by Pino Beaver > 04/04/21 [id number]
== END ==
LOC: M WHC 13:06
PROVIDERS: ATTEND Specialist
DX: R10.2 Pelvic and perineal pain (principal)

== ENCOUNTER → 2021-06-03 | Outpatient (CLI) | payer OTHER | LOC: M LABSMTC 09:43 | PROVIDERS: ATTEND Anesthesiology | DX: Z20.828 Contact with and (suspected) exposure to other viral communicable diseases (principal); Z11.59 Encounter for screening for other viral diseases ==

== ENCOUNTER 2021-06-08 11:09 | Day surgery (SDC) | payer OTHER ==
[~2021-06-08] VITALS: Ht 165.1 cm; Wt 71.1 kg
[2021-06-08] VITALS (7 sets, daily range): BP systolic 92–102; BP diastolic 54–70
[~2021-06-08 11:09] MED LIST changes: +ACETAMINOPHEN 1000MG 100ML IV BTL (OFIRMEV) (J0131 PER 10MG) As Ordered ONE; +KETOROLAC 60MG 2ML VIAL As Ordered ONE; +LIDOCAINE 1% MDV 20ML VIAL SQ PRN; +LIDOCAINE 2% 100MG/5ML SDV (FOR ANES.) As Ordered ONE; +LR 1,000 ML IV ONE; +MIDAZOLAM INJ 2MG/2ML VIAL (J2250 PER 1MG) As Ordered ONE; +ONDANSETRON 4MG/2ML VIAL As Ordered ONE; +ROCURONIUM BROMIDE 50 MG/5 ML VIAL As Ordered ONE; +SUGAMMADEX SODIUM 500 MG/5 ML VIAL (BRIDION) As Ordered ONE; +dexameTHASONE 4 MG/ML 1ML VIAL (J1100 PER 1MG) As Ordered ONE; +fentaNYL 100 MCG/2 ML INJECTION (J3010) As Ordered ONE; +propofoL 200 MG/20 ML VIAL As Ordered ONE
[2021-06-08 11:43] LABS: HEMATOCRIT 37.9 % (36.0-47.0); HEMOGLOBIN 12.7 g/dl (12.0-15.5); MEAN CORPUSCULAR HEMOGLOBIN 30.6 pg (27.0-33.0); MEAN CORPUSCULAR HGB CONC 33.5 g/dl (32.0-36.5); MEAN CORPUSCULAR VOLUME 91.3 fl (80.0-96.0); PLATELET COUNT, AUTOMATED 272 10^3/uL (150-450); RED BLOOD COUNT 4.15 10^6/uL (4.00-5.40)
[2021-06-08] MEDS ORDERED: ceFAZolin SOD 2 GM in IV 1 EA IV ONE (11:50)
--- NOTE | 2021-06-08 12:53 | ROOPDOC ---
[facility] Report Of Operation Report of Operation DATE OF PROCEDURE: 06/08/21 OPERATIVE REPORT: Preoperative diagnosis: Menorrhagia. Postoperative diagnosis: Same. Procedure: Robotic-assisted laparoscopic hysterectomy, bilateral salpingectomy. Surgeon: Nichelle Phelps M.D. Voltage Regulator Assembler: Ary Adhikari NP Findings: Normal uterus fallopian tubes and ovaries. Normal upper abdomen. EBL: 100 mL's. Urine output: 100 mL's. Operative summary: Patient was taken to the operating room where general endotracheal anesthesia was induced. She was prepped and draped in sterile fashion in the dorsal lithotomy position. A Prado Catheter was placed. A V care uterine manipulator was placed. A Periumbilical incision was made with a scalpel. .A Veress needle was placed through this incision. Intra-abdominal location of Veress needle was assessed with saline filled syringe. A pneumoperitoneum was created. The Veress needle was removed. An 8 mm trocar using the Visiport was inserted through this incision. Three 8 mm suprapubic ports were placed under direct visualization The patient was placed in Trendelenburg position. The da Rishabh surgical robot was docked to the ports. Using the fenestrated bipolar instrument and vessel sealer, the utero-ovarian ligaments and broad ligaments were coagulated and incised. Broad ligament attachments of the fallopian tubes were coagulated and incised. The round ligaments were coagulated and incised. The anterior and posterior leaves of the broad ligament were . Bladder flap was created. The uterine vessels were coagulated and incised using monopolar Endo Sri. A colpotomy was created in the upper vagina at the level of the V care Cup. The specimen including the uterus, cervix, and fallopian tubes was removed through the vagina. The vaginal cuff was closed with #1 V lock suture in a running fashion. All instruments removed. The skin was closed with 4-0 Monocryl subcuticular sutures. Ary Adhikari NP assisted with all aspects of the procedure. She helped position the patient. She helped insert the ports and manipulate the uterus. She removed the specimen. NICHELLE PHELPS MD Jun 08, 2021 12:53
[2021-06-08] MEDS ORDERED: BUPIVACAINE HCL 0.25% 10ML VIAL As Ordered ONE (12:54)
[2021-06-08] MEDS ORDERED: OXYC1TAB23 PO (12:57)
[2021-06-08] MEDS ORDERED: IBUP-1022 PO (12:58)
[2021-06-08] MEDS ORDERED: HYDROmorphone HCL 2 MG/ML 1ML VIAL (J1170) As Ordered ONE (14:11)
[2021-06-08] MEDS ORDERED: LR 1,000 ML IV SCH ×2 (15:00→15:15)
[2021-06-08] MEDS ORDERED: METOCLOPRAMIDE INJ 10MG/2ML VIAL (J2765 PER 1) IV PRN (15:00)
[2021-06-08] MEDS ORDERED: PERCOCET 5MG/325MG TAB PO PRN ×2 (15:00→15:10)
[2021-06-08] MEDS ORDERED: ONDANSETRON 4MG/2ML VIAL IV PRN ×2 (15:00→15:10)
[2021-06-08] MEDS: fentaNYL 100 MCG/2 ML INJECTION (J3010) IV PRN ×3 (15:10→15:28)
[2021-06-08] MEDS ORDERED: KETOROLAC 30 MG/ML 1ML VIAL IV PRN (15:15)
[2021-06-08] MEDS: DOCUSATE SODIUM 100MG CAPSULE PO SCH (20:22)
[2021-06-09] MEDS ORDERED: UNRESOLVED CLARIFICATION ENTRY XX SCH (00:01)
[2021-06-09 02:00] VITALS: BP 90/54
[2021-06-09 06:00] VITALS: BP 97/52
[2021-06-09] MEDS: DOCUSATE SODIUM 100MG CAPSULE PO SCH (08:25)
== END 2021-06-09 10:35 | disposition home or self-care (01) ==
LOC: M SDC 11:09 → M MSPAV 16:06 → M SDC 06-09 10:35
PROVIDERS: ATTEND Specialist
DX: N92.0 Excessive and frequent menstruation with regular cycle (principal); D25.9 Leiomyoma of uterus, unspecified; F41.9 Anxiety disorder, unspecified; Z79.899 Other long term (current) drug therapy; Z88.0 Allergy status to penicillin; Z88.8 Allergy status to other drugs, medicaments and biological substances
CPT/HCPCS: 36415; 58571; 85027; 86850; 86900; 86901; 88307; 96360; 96361; J0131; J0690; J1100; J1170; J1885; J2250; J2405; J2765; J3010; S2900

== ENCOUNTER 2022-08-27 19:27 | Emergency (ER) | payer OTHER ==
[~2022-08-27] VITALS: Ht 165.1 cm; Wt 82.5 kg
[~2022-08-27 19:27] MED LIST changes: -ACETAMINOPHEN 1000MG 100ML IV BTL (OFIRMEV) (J0131 PER 10MG) As Ordered ONE; +ALBU2.5V10 NEB; -ALBU83IN NEB; +CLIN-250 PO; -CLIN300C6 PO; -KETOROLAC 60MG 2ML VIAL As Ordered ONE; -LIDOCAINE 1% MDV 20ML VIAL SQ PRN; -LIDOCAINE 2% 100MG/5ML SDV (FOR ANES.) As Ordered ONE; -LR 1,000 ML IV ONE; -MIDAZOLAM INJ 2MG/2ML VIAL (J2250 PER 1MG) As Ordered ONE; -ONDANSETRON 4MG/2ML VIAL As Ordered ONE; -ROCURONIUM BROMIDE 50 MG/5 ML VIAL As Ordered ONE; -SUGAMMADEX SODIUM 500 MG/5 ML VIAL (BRIDION) As Ordered ONE; -dexameTHASONE 4 MG/ML 1ML VIAL (J1100 PER 1MG) As Ordered ONE; -fentaNYL 100 MCG/2 ML INJECTION (J3010) As Ordered ONE; -propofoL 200 MG/20 ML VIAL As Ordered ONE
[2022-08-27] MEDS ORDERED: IBUP-1022 PO (22:38)
[2022-08-27] MEDS ORDERED: IBUPROFEN 600MG TAB PO ONE (22:40)
[2022-08-27 22:54] VITALS: BP 137/80
== END 2022-08-27 22:57 | disposition home or self-care (01) ==
LOC: M ED 19:27
DX: S83.92XA Sprain of unspecified site of left knee, initial encounter (principal); F41.9 Anxiety disorder, unspecified; Y92.9 Unspecified place or not applicable; Y93.41 Activity, dancing; Z88.0 Allergy status to penicillin; Z88.6 Allergy status to analgesic agent; Z79.51 Long term (current) use of inhaled steroids; Z79.899 Other long term (current) drug therapy

== ENCOUNTER → 2023-03-07 | Outpatient (CLI) | payer OTHER | LOC: M WUC 11:44 | PROVIDERS: ATTEND Internal Medicine | DX: Z02.1 Encounter for pre-employment examination (principal) ==

== ENCOUNTER → 2023-03-14 | Outpatient (REF) | payer OTHER | LOC: M LAB REF 16:17 → M LABWUC 16:17 | PROVIDERS: ATTEND Nurse Practitioner Family | DX: Z02.1 Encounter for pre-employment examination (principal) ==

== ENCOUNTER → 2023-07-25 | Outpatient (CLI) | payer OTHER | LOC: M CARPUL 08:47 | PROVIDERS: ATTEND Nurse Practitioner Family | DX: J45.21 Mild intermittent asthma with (acute) exacerbation (principal) ==

== ENCOUNTER → 2023-08-27 | Outpatient (REF) | payer OTHER ==
[~2023-08-27] MED LIST changes: +OXYB5TAB11; +PRED10TA2 PO
== END ==
LOC: M LAB REF 17:36
PROVIDERS: ATTEND Nurse Practitioner Family
DX: Z12.4 Encounter for screening for malignant neoplasm of cervix (principal)

== ENCOUNTER → 2023-12-12 | Outpatient (CLI) | payer OTHER ==
[~2023-12-12] MED LIST changes: +MULT18TA PO; -ONE-1TAB PO; -OXYB5TAB11; +OXYB5TAB14
[2023-12-12 09:30] LABS: BASO % 0.5 % (0.0-1.0); EOS # 0.3 10^3/uL (0.0-0.5); EOS % 4.3 % (0.0-3.0); HEMATOCRIT 42.1 % (36.0-47.0); HEMOGLOBIN 14.3 g/dl (12.0-15.5); LYMPH # 1.5 10^3/uL (1.5-5.0); LYMPH % 23.5 % (24.0-44.0); MEAN CORPUSCULAR VOLUME 91.3 fl (80.0-96.0); MONO # 0.6 10^3/uL (0.0-0.8); MONO % 9.7 % (2.0-8.0); NEUTROPHILS # 3.9 10^3/uL (1.5-8.5); NEUTROPHILS % 61.8 % (36.0-66.0); PLATELET COUNT, AUTOMATED 411 10^3/uL (150-450); RED BLOOD COUNT 4.61 10^6/uL (4.00-5.40); WHITE BLOOD COUNT 6.3 10^3/uL (4.0-10.0)
[2023-12-12 09:53] LABS: ALKALINE PHOSPHATASE 67 U/L (46-116); ALT/SGPT 43 U/L (7.0-40); AST/SGOT 21 U/L (<34); BILIRUBIN,TOTAL 0.7 MG/DL (0.3-1.2); BLOOD UREA NITROGEN 10 MG/DL (9-23); CARBON DIOXIDE LEVEL 26 MMOL/L (20-31); CHLORIDE LEVEL 107 MMOL/L (98-107); CREATININE FOR GFR 0.86 MG/DL (0.55-1.30); GLOMERULAR FILTRATION RATE > 60.0 (>60); GLUCOSE, FASTING 108 MG/DL (60-100); SODIUM LEVEL 139 MMOL/L (136-145)
== END ==
LOC: M LAB 08:59
PROVIDERS: ATTEND Physician Assistant
DX: R06.2 Wheezing (principal)

== ENCOUNTER → 2024-02-15 | Outpatient (CLI) | payer OTHER ==
[2024-02-15 16:00] LABS: BASO % 0.5 % (0.0-1.0); EOS # 0.6 10^3/uL (0.0-0.5); EOS % 8.4 % (0.0-3.0); HEMATOCRIT 38.5 % (36.0-47.0); HEMOGLOBIN 13.2 g/dl (12.0-15.5); LYMPH # 2.1 10^3/uL (1.5-5.0); LYMPH % 31.8 % (24.0-44.0); MEAN CORPUSCULAR HEMOGLOBIN 31.9 pg (27.0-33.0); MEAN CORPUSCULAR HGB CONC 34.3 g/dl (32.0-36.5); MONO # 0.5 10^3/uL (0.0-0.8); MONO % 7.1 % (2.0-8.0); NEUTROPHILS # 3.3 10^3/uL (1.5-8.5); PLATELET COUNT, AUTOMATED 304 10^3/uL (150-450); RED BLOOD COUNT 4.14 10^6/uL (4.00-5.40); WHITE BLOOD COUNT 6.5 10^3/uL (4.0-10.0)
== END ==
LOC: M PLALAB 12:04
PROVIDERS: ATTEND Nurse Practitioner Family
DX: R06.02 Shortness of breath (principal)

== ENCOUNTER → 2024-02-27 | Outpatient (CLI) | payer OTHER | LOC: M PLAIMG 11:16 | PROVIDERS: ATTEND Nurse Practitioner Family | DX: J45.40 Moderate persistent asthma, uncomplicated (principal); R91.1 Solitary pulmonary nodule ==

== ENCOUNTER → 2024-03-18 | Outpatient (REF) | payer OTHER | LOC: M LAB REF 13:07 | PROVIDERS: ATTEND Nurse Practitioner Family | DX: J45.40 Moderate persistent asthma, uncomplicated (principal) ==

== ENCOUNTER → 2024-04-21 | Outpatient (CLI) | payer OTHER | LOC: M PLAIMG 12:41 | PROVIDERS: ATTEND Nurse Practitioner Family | DX: R91.8 Other nonspecific abnormal finding of lung field (principal) ==

== ENCOUNTER → 2024-05-06 | Outpatient (REF) | payer OTHER ==
[2024-05-06 17:58] LABS: THYROXINE (T4) 6.7 UG/DL (4.5-10.9)
[2024-05-06 18:00] LABS: THYROID STIMULATING HORMONE 0.537 uIU/ML (0.55-4.78)
[2024-05-06 18:02] LABS: ALBUMIN 3.7 G/DL (3.2-5.2); ALKALINE PHOSPHATASE 66 U/L (46-116); ALT/SGPT 19 U/L (7.0-40); AST/SGOT 15 U/L (<34); BILIRUBIN,TOTAL 0.5 MG/DL (0.3-1.2); BLOOD UREA NITROGEN 13 MG/DL (9-23); CALCIUM LEVEL 9.1 MG/DL (8.5-10.1); CARBON DIOXIDE LEVEL 27 MMOL/L (20-31); CHLORIDE LEVEL 109 MMOL/L (98-107); CHOLESTEROL LEVEL 167 MG/DL (<200); CHOLESTEROL RISK RATIO 4.41 (<5); CREATININE FOR GFR 0.98 MG/DL (0.55-1.30); GLOMERULAR FILTRATION RATE > 60.0 (>60); GLUCOSE, FASTING 71 MG/DL (60-100); HDL CHOLESTEROL 37.8 MG/DL (>40); LDL CHOLESTEROL 87.4 MG/DL (<100); NON-HDL-C 129.2 MG/DL; POTASSIUM SERUM 3.7 MMOL/L (3.5-5.1); SODIUM LEVEL 140 MMOL/L (136-145); TOTAL 25(OH) VITAMIN D 38.8 NG/ML (20.0-100.0); TRIGLYCERIDES LEVEL 209 MG/DL (<150)
[2024-05-06 18:05] LABS: FREE THYROXINE INDEX 2.8 % (1.3-4.8); T UPTAKE 41.3 % (22.5-37.0)
== END ==
LOC: M LAB REF 16:39
PROVIDERS: ATTEND Physician Assistant
DX: E04.1 Nontoxic single thyroid nodule (principal); Z13.1 Encounter for screening for diabetes mellitus; Z13.220 Encounter for screening for lipoid disorders; Z11.9 Encounter for screening for infectious and parasitic diseases, unspecified; K80.20 Calculus of gallbladder without cholecystitis without obstruction; E55.9 Vitamin D deficiency, unspecified

== ENCOUNTER → 2024-06-09 | Outpatient (CLI) | payer OTHER | LOC: M RAD 09:39 | PROVIDERS: ATTEND Physician Assistant | DX: K80.20 Calculus of gallbladder without cholecystitis without obstruction (principal); E04.1 Nontoxic single thyroid nodule ==

== ENCOUNTER → 2024-06-25 | Outpatient (REF) | payer OTHER | LOC: M LAB REF 11:52 | PROVIDERS: ATTEND Physician Assistant | DX: K92.1 Melena (principal) ==

== ENCOUNTER 2024-08-01 07:31 | Day surgery (SDC) | payer OTHER ==
[~2024-08-01] VITALS: Ht 165.1 cm; Wt 74.8 kg
[~2024-08-01 07:31] MED LIST changes: +CETI-24 PO; +DUPI300I SC; +NS 250 ML IV ONE
[2024-08-01] MEDS ORDERED: fentaNYL 100 MCG/2 ML INJECTION As Ordered ONE (08:20)
[2024-08-01] MEDS ORDERED: GLYCOPYRROLATE INJ 0.2 MG/ML 2 ML VIAL As Ordered ONE (08:21)
[2024-08-01] MEDS ORDERED: propofoL 200 MG/20 ML VIAL As Ordered ONE (08:21)
[2024-08-01] MEDS ORDERED: LIDOCAINE 2% 100MG/5ML SDV (FOR ANES.) As Ordered ONE (08:21)
[2024-08-01 09:23] VITALS: TEMP 97.8
[2024-08-01 09:40] VITALS: BP 122/78; O2SAT 98
== END 2024-08-01 09:47 | disposition home or self-care (01) ==
LOC: M OPP 07:31
PROVIDERS: ATTEND Surgery
DX: R19.7 Diarrhea, unspecified (principal); R10.84 Generalized abdominal pain; K30 Functional dyspepsia; R14.0 Abdominal distension (gaseous); K31.89 Other diseases of stomach and duodenum; J45.909 Unspecified asthma, uncomplicated; Z79.899 Other long term (current) drug therapy; Z88.0 Allergy status to penicillin; Z88.6 Allergy status to analgesic agent
CPT/HCPCS: 43239; 45380; 88305; J1596; J3010

== ENCOUNTER → 2024-09-02 | Outpatient (CLI) | payer OTHER ==
[~2024-09-02] MED LIST changes: -NS 250 ML IV ONE
[2024-09-02 10:18] LABS: BASO # 0.1 10^3/uL (0.0-0.2); BASO % 0.9 % (0.0-1.0); EOS # 1.5 10^3/uL (0.0-0.5); EOS % 19.7 % (0.0-3.0); HEMATOCRIT 37.4 % (36.0-47.0); HEMOGLOBIN 12.6 g/dl (12.0-15.5); LYMPH # 2.1 10^3/uL (1.5-5.0); LYMPH % 26.7 % (24.0-44.0); MEAN CORPUSCULAR HEMOGLOBIN 31.2 pg (27.0-33.0); MEAN CORPUSCULAR HGB CONC 33.7 g/dl (32.0-36.5); MEAN CORPUSCULAR VOLUME 92.6 fl (80.0-96.0); MONO # 0.5 10^3/uL (0.0-0.8); MONO % 6.3 % (2.0-8.0); NEUTROPHILS # 3.6 10^3/uL (1.5-8.5); NEUTROPHILS % 46.1 % (36.0-66.0); PLATELET COUNT, AUTOMATED 345 10^3/uL (150-450); RED BLOOD COUNT 4.04 10^6/uL (4.00-5.40); WHITE BLOOD COUNT 7.8 10^3/uL (4.0-10.0)
[2024-09-02 10:41] LABS: URIC ACID 4.3 MG/DL (3.1-7.8)
[2024-09-02 10:44] LABS: ALBUMIN 3.5 G/DL (3.2-5.2); ALKALINE PHOSPHATASE 68 U/L (35-104); ALT/SGPT 21 U/L (7.0-40); AST/SGOT 14 U/L (<34); BILIRUBIN,TOTAL 0.4 MG/DL (0.3-1.2); BLOOD UREA NITROGEN 12 MG/DL (9-23); CALCIUM LEVEL 9.5 MG/DL (8.5-10.1); CARBON DIOXIDE LEVEL 27 MMOL/L (20-31); CHLORIDE LEVEL 107 MMOL/L (98-107); CREATININE FOR GFR 0.89 MG/DL (0.55-1.30); GLOMERULAR FILTRATION RATE > 60.0 (>60); GLUCOSE, FASTING 93 MG/DL (60-100); POTASSIUM SERUM 4.6 MMOL/L (3.5-5.1); SODIUM LEVEL 139 MMOL/L (136-145); TOTAL PROTEIN 6.6 G/DL (5.7-8.2)
[2024-09-02 10:45] LABS: FREE T4 1.07 NG/DL (0.89-1.76); THYROID STIMULATING HORMONE 1.085 uIU/ML (0.55-4.78)
[2024-09-04 15:47] LABS: QuantiFERON-TB Gold Plus NEGATIVE (NEGATIVE)
== END ==
LOC: M WUC 08:50
DX: R61 Generalized hyperhidrosis (principal); Z79.899 Other long term (current) drug therapy

== ENCOUNTER → 2024-10-24 | Outpatient (CLI) | payer OTHER | LOC: M RAD 16:36 | PROVIDERS: ATTEND Physician Assistant | DX: M71.372 Other bursal cyst, left ankle and foot (principal) ==

== ENCOUNTER → 2024-12-26 | Outpatient (CLI) | payer OTHER | LOC: M RAD 07:06 | PROVIDERS: ATTEND Internal Medicine Gastroenterology | DX: R10.13 Epigastric pain (principal); R19.8 Other specified symptoms and signs involving the digestive system and abdomen; K80.20 Calculus of gallbladder without cholecystitis without obstruction; Z53.9 Procedure and treatment not carried out, unspecified reason ==

== ENCOUNTER → 2025-02-05 | Outpatient (REF) | payer OTHER | LOC: M LAB REF 11:34 | PROVIDERS: ATTEND Nurse Practitioner Family | DX: J06.9 Acute upper respiratory infection, unspecified (principal) ==

== ENCOUNTER → 2025-02-05 | Outpatient (CLI) | payer OTHER | LOC: M WHC 13:03 | PROVIDERS: ATTEND Physician Assistant | DX: E04.1 Nontoxic single thyroid nodule (principal) ==

== ENCOUNTER → 2025-04-14 | Outpatient (CLI) | payer OTHER ==
[2025-04-14 14:00] VITALS: TEMP 98.1
[2025-04-14 14:35] VITALS: BP 147/93; O2SAT 99
== END ==
LOC: M IRPRO 13:55
PROVIDERS: ATTEND Otolaryngology
DX: E04.1 Nontoxic single thyroid nodule (principal)

== ENCOUNTER → 2025-04-15 | Outpatient (CLI) | payer OTHER | LOC: M RAD 07:41 | DX: R10.13 Epigastric pain (principal); R19.8 Other specified symptoms and signs involving the digestive system and abdomen; K80.20 Calculus of gallbladder without cholecystitis without obstruction; R11.0 Nausea | CPT/HCPCS: 78227; A9537 ==

== ENCOUNTER → 2025-06-20 | Outpatient (CLI) | payer OTHER ==
[~2025-06-20] MED LIST changes: -IBUP-1022 PO; +IBUP600T42 PO
[2025-06-20 11:35] LABS: BASO # 0.1 10^3/uL (0.0-0.2); BASO % 0.8 % (0.0-1.0); EOS # 0.7 10^3/uL (0.0-0.5); EOS % 10.4 % (0.0-3.0); LYMPH # 2.3 10^3/uL (1.5-5.0); LYMPH % 34.1 % (24.0-44.0); MONO # 0.6 10^3/uL (0.0-0.8); MONO % 8.9 % (2.0-8.0); NEUTROPHILS # 3.0 10^3/uL (1.5-8.5); NEUTROPHILS % 45.0 % (36.0-66.0); PLATELET COUNT, AUTOMATED 330 10^3/uL (150-450)
[2025-06-20 12:03] LABS: ALT/SGPT 27.0 U/L (7.0-40); AST/SGOT 21.0 U/L (<34); CALCIUM LEVEL 9.1 MG/DL (8.5-10.1); CARBON DIOXIDE LEVEL 28.0 MMOL/L (20-31); CHLORIDE LEVEL 106.0 MMOL/L (98-107); CHOLESTEROL LEVEL 217.0 MG/DL (<200); CHOLESTEROL RISK RATIO 4.84 (<5); CREATININE FOR GFR 0.94 MG/DL (0.55-1.30); GLOMERULAR FILTRATION RATE 80.2 (>60); LDL CHOLESTEROL 143.2 MG/DL (<100); MAGNESIUM LEVEL 1.9 MG/DL (1.8-2.4); NON-HDL-C 172.2 MG/DL; POTASSIUM SERUM 3.9 MMOL/L (3.5-5.1); SODIUM LEVEL 142.0 MMOL/L (136-145); TRIGLYCERIDES LEVEL 145.0 MG/DL (<150)
[2025-06-20 12:05] LABS: TOTAL 25(OH) VITAMIN D 30.2 NG/ML (20.0-100.0)
[2025-06-20 14:03] LABS: ESTIMATED AVERAGE GLUCOSE 111.0 MG/DL (60-110)
[2025-06-24 17:17] LABS: LYME TOTAL ANTIBODY CIA <= 0.90 Index (<=0.90)
== END ==
LOC: M RAD 10:57
PROVIDERS: ATTEND Physician Assistant
DX: R14.0 Abdominal distension (gaseous) (principal); R63.5 Abnormal weight gain; R53.83 Other fatigue